=== PATIENT | male | born 1980 | race Caucasian/White ===

== ENCOUNTER 2017-07-23 10:53 | Day surgery (SDC) | payer BC ==
[~2017-07-23] VITALS: Ht 172.7 cm; Wt 101.8 kg
[~2017-07-23 10:53] MED LIST: ATIVAN 0.50.5 MG/TAB PO; PERCOCET 325 MG1 TA2 PO; VESICARE 5MG5 MG PO; ZANTAC 150MG T150 MG PO
[2017-07-23] MEDS ORDERED: LEVBID0.375 MG (11:30)
[2017-07-23 11:39] VITALS: BP 125/95; PULSE 85; TEMP 97
[2017-07-23 14:00] VITALS: BP 100/82; PULSE 88; TEMP 96.9
[2017-07-23 14:15] VITALS: BP 102/70; PULSE 80
[2017-07-23] MEDS ORDERED: PROTONIX 40MG T40 MG PO (14:17)
[2017-07-23 14:30] VITALS: BP 101/71; PULSE 64
[2017-07-23 14:45] VITALS: BP 103/78; PULSE 76
== END 2017-07-23 15:19 | disposition home or self-care (01) ==
LOC: SDCO 10:53
DX: K64.0 First degree hemorrhoids (principal); K29.30 Chronic superficial gastritis without bleeding; K26.9 Duodenal ulcer, unspecified as acute or chronic, without hemorrhage or perforation; K31.89 Other diseases of stomach and duodenum; K21.9 Gastro-esophageal reflux disease without esophagitis; K58.2 Mixed irritable bowel syndrome; K59.09 Other constipation; Z86.010 Personal history of colon polyps
CPT/HCPCS: OP; C1726; J2250; J2405; J3010; J7030

== ENCOUNTER → 2019-09-08 | Outpatient (CLI) | payer BC ==
[~2019-09-08] MED LIST changes: +LEVBID0.375 MG; +PROTONIX 40MG T40 MG PO
== END ==
LOC: COL.RAD 11:00
DX: K21.9 Gastro-esophageal reflux disease without esophagitis (principal); J39.2 Other diseases of pharynx; Z98.890 Other specified postprocedural states